=== PATIENT | male | born 1960 | race Caucasian/White ===

== ENCOUNTER 2018-09-03 19:14 | Emergency (ER) | payer BC, OTHER ==
[~2018-09-03] VITALS: Ht 175.3 cm; Wt 89.0 kg
[~2018-09-03 19:14] MED LIST: BUPR100T6 PO; EMTR1TAB5 PO; ISEN400 PO; TAMS-14 PO
[2018-09-03 19:40] VITALS: Ht 175.3 cm; Wt 89.0 kg
[2018-09-03] MEDS ORDERED: morphine 4 MG/ML VIAL IV STA (20:45)
[2018-09-03] MEDS ORDERED: IODIXANOL LOCM 100 ML BTL ONE (22:14)
[2018-09-03] MEDS ORDERED: SOD CHLORIDE 0.9% 100 ML ONE (22:14)
--- NOTE | 2018-09-03 22:51 | ERD ---
ER Documentation Chief Complaint Chief Complaint LLQ AP x1 day w/ diarrhea. no n/v/fever. hx of diverticulitis HPI 57-year-old male with a history of HIV on medications as well as diverticulitis presenting with complaints of left lower quadrant abdominal pain that is aching, nonradiating, constant, 9 out of 10, worsened with movement. He states that this feels like diverticulitis episodes he has had in the past. About 4 weeks a go, he had the same symptoms. He called his doctor and was given a 10-day course of levofloxacin and Flagyl. He finished his course of antibiotics, only missing a few doses. He improved but since yesterday has been worse. No associated fever, chills, nausea, vomiting. He does have a rash on his body that he was not aware of but he denies any itching or pain associated with it. ROS All systems reviewed and are negative except as per history of present illness. Medications Home Meds Active Scripts Levofloxacin* (Levaquin*) 750 Mg Tablet, 750 MG PO DAILY for 14 Days, TAB Prov:MELVIN INGRAM MD 09/04/18 Ondansetron (Ondansetron Odt) 4 Mg Tab.rapdis, 4 MG PO Q6H PRN for NAUSEA AND/OR VOMITING, #10 TAB Prov:MELVIN INGRAM MD 09/04/18 Metronidazole* (Flagyl*) 500 Mg Tablet, 500 MG PO TID for 14 Days, TAB Prov:MELVIN INGRAM MD 09/04/18 Reported Medications Tamsulosin Hcl* (Flomax*) 0.4 Mg Cap.er.24h, 0.4 MG PO DAILY, CAP 02/03/14 Bupropion Hcl* (Wellbutrin*) 100 Mg Tablet, 100 MG PO DAILY 07/23/12 Raltegravir Potassium* (Isentress*) 400 Mg Tablet, 800 PO BID 07/23/12 Emtricitabine/Tenofovir (Truvada Tablet) 1 Tab Tablet, 1 TAB PO DAILY 07/23/12 Allergies Allergies: Coded Allergies: No Known Allergy (Unverified , 08/16/14) PMhx/Soc History of Surgery: Yes (Paralyzed diaphragm) Anesthesia Reaction: No Hx Neurological Disorder: No Hx Respiratory Disorders: No Hx Cardiac Disorders: Yes (HTN) Hx Psychiatric Problems: Yes (Controlled Depression) Hx Miscellaneous Medical Probl: Yes (HIV+) Hx Alcohol Use: Yes (Once in a while) Hx Substance Use: Yes (Marijuana, Quit meth in 2009) Hx Tobacco Use: No Smoking Status: Never smoker Physical Exam Vitals Vital Signs Date Temp Pulse Resp B/P (MAP) Pulse Ox O2 O2 Flow FiO2 Time Delivery Rate 09/03/18 98.6 92 18 144/103 98 Room Air 20:08 (117) 09/03/18 99.3 94 18 165/88 98 19:40 (113) Physical Exam Const: No acute distress Head: Atraumatic Eyes: Normal Conjunctiva ENT: Normal External Ears, Nose and Mouth. Neck: Full range of motion. No meningismus. Resp: Clear to auscultation bilaterally Cardio: Regular rate and rhythm, no murmurs Abd: Soft, left lower quadrant tender to palpation with guarding but no rebound tenderness, non distended. Normal bowel sounds Skin: Urticarial-like erythematous rash to bilateral upper extremities and upper chest. Blanching. Nontender to palpation. No petechiae or rashes Back: No midline or flank tenderness Ext: No cyanosis, or edema Neur: Awake and alert Psych: Normal Mood and Affect Result Diagram: 09/03/18205409/03/182054 Results 24 hrs Laboratory Tests Test 09/03/18 20:55 09/04/18 00:09 White Blood Count 12.0 10^3/ul Red Blood Count 5.07 10^6/ul Hemoglobin 16.0 g/dl Hematocrit 45.9 % Mean Corpuscular Volume 90.5 fl Mean Corpuscular Hemoglobin 31.6 pg Mean Corpuscular Hemoglobin Concent 34.9 g/dl Red Cell Distribution Width 11.9 % Platelet Count 230 10^3/UL Mean Platelet Volume 10.2 fl Immature Granulocytes % 0.300 % Neutrophils % 76.0 % Lymphocytes % 13.7 % Monocytes % 8.4 % Eosinophils % 1.1 % Basophils % 0.5 % Nucleated Red Blood Cells % 0.0 /100WBC Immature Granulocytes # 0.030 10^3/ul Neutrophils # 9.1 10^3/ul Lymphocytes # 1.6 10^3/ul Monocytes # 1.0 10^3/ul Eosinophils # 0.1 10^3/ul Basophils # 0.1 10^3/ul Nucleated Red Blood Cells # 0.0 10^3/ul Urine Color STRAW Urine Clarity CLEAR Urine pH 6.0 Urine Specific Letts 1.013 Urine Ketones NEGATIVE mg/dL Urine Nitrite NEGATIVE mg/dL Urine Bilirubin NEGATIVE mg/dL Urine Urobilinogen NEGATIVE mg/dL Urine Leukocyte Esterase NEGATIVE Kirsten/ul Urine Hemoglobin NEGATIVE mg/dL Urine Glucose NEGATIVE mg/dL Urine Total Protein NEGATIVE mg/dl Sodium Level 136 mmol/L Potassium Level 3.9 mmol/L Chloride Level 101 mmol/L Carbon Dioxide Level 28 mmol/L Anion Gap 7 Blood Urea Nitrogen 17 mg/dl Creatinine 1.24 mg/dl Est Glomerular Filtrat Rate mL/min > 60 mL/min Glucose Level 117 mg/dl Calcium Level 10.2 mg/dl Total Bilirubin 1.0 mg/dl Direct Bilirubin 0.00 mg/dl Indirect Bilirubin 1.0 mg/dl Aspartate Amino Transf (AST/SGOT) 37 IU/L Alanine Aminotransferase (ALT/SGPT) 41 IU/L Alkaline Phosphatase 57 IU/L Total Protein 7.6 g/dl Albumin 4.6 g/dl Globulin 3.00 g/dl Albumin/Globulin Ratio 1.53 POC Venous Lactate 0.9 mmol/L Current Medications Medications Dose Sig/Pascual Start Time Status Last (Trade) Ordered Route PRN Stop Time Admin Dose Reason Admin Morphine 4 mg ONCE STAT 09/03/18 DC 09/03/18 Sulfate IV 20:45 21:18 (morphine) 09/03/18 20:49 IV Flush 10 ml STK-MED 09/03/18 DC 09/03/18 (NS 10 ml) ONCE .ROUTE 22:14 22:14 09/03/18 22:15 Sodium 100 ml @ ud STK-MED 09/03/18 DC 09/03/18 Chloride ONCE .ROUTE 22:14 22:14 09/03/18 22:15 Iodixanol 100 ml STK-MED 09/03/18 DC 09/03/18 (Visipaque ONCE .ROUTE 22:14 22:14 Locm) 09/03/18 22:15 Piperacillin 100 ml @ ONCE STAT 09/03/18 DC 09/03/18 Sod/ 200 mls/hr IVPB 23:26 23:54 Tazobactam 09/03/18 23:55 Sod 100 ml @ ONCE STAT 09/03/18 09/03/18 Metronidazole 100 mls/hr IVPB 23:26 23:55 09/04/18 00:25 Morphine 6 mg ONCE ONCE 09/04/18 DC 09/03/18 Sulfate IV 00:00 23:54 (morphine) 09/04/18 00:01 Procedures/MDM EMERGENT LABS AND DIAGNOSTIC STUDIES: Lab Results above were reviewed and interpreted by me. CBC: leukocytosis, likely secondary to infection. no anemia CMP: No evidence of clinically significant electrolyte abnormality, acidosis, renal failure, hypoglycemia, liver disease, or biliary obstruction\ Lactate normal, no evidence of severe sepsis or tissue hypoperfusion UA: no evidence of infection Radiology Results as interpreted by Radiology below were reviewed by Kee Ingram MD: CT abdomen and pelvis shows evidence of acute diverticulitis without evidence of perforation or abscess. Other incidental findings as noted in CT report, not related to patient's symptoms. Initial Nursing notes reviewed. Previous Medical Records requested via the Electronic Health Record. EMERGENCY DEPARTMENT COURSE / MEDICAL DECISION MAKING: Patient is presenting with left lower quadrant pain, likely acute diverticulitis. CT was done to evaluate for possible perforation or abscess as the patient recently had diverticulitis at that was treated and is having another episode so soon after. Labs showed leukocytosis but were otherwise norm al. No evidence of severe sepsis or septic shock. CT shows acute diverticulitis without complication. I spoke with the [facility] physician on-call, Dr. Reid, who feels that the patient does not require admission. He recommended 14 days of dual antibiotic therapy and follow-up with GI will be arranged by him. Patient feels comfortable with this plan. Return precautions were discussed. Importance of GI follow-up was also discussed. With regard to his rash, this may be an urticarial rash secondary to his infection but I do not suspect acute allergic reaction or other serious life-threatening etiology to rash. He was given Flagyl and Zosyn IV prior to discharge. Patient's blood pressure was elevated (>120/80) but appears stable without evidence of hypertensive emergency or urgency. The patient was counseled about the risks of hypertension and urged to pursue outpatient monitoring and therapy within a week with their primary care physician. Departure Diagnosis: Primary Impression: Diverticulitis Additional Impression: Rash and other nonspecific skin eruption Condition: Stable EKMELVIN MARTIN MD September 03, 2018 22:51
[2018-09-03] MEDS ORDERED: PIPER-TAZO 3.375 GM IV (PMX) 100 ML IVPB STA (23:26)
[2018-09-03] MEDS ORDERED: metroNIDAZOLE 500 MG/NS (PMX) 100 ML IVPB STA (23:26)
[2018-09-04] MEDS ORDERED: morphine 10 MG INJ IV ONE
[2018-09-04] MEDS ORDERED: LEVO750T25 PO (00:13)
[2018-09-04] MEDS ORDERED: METR500T PO (00:13)
[2018-09-04] MEDS ORDERED: ONDA4TAB14 PO (00:13)
[2018-09-04 01:13] VITALS: BP 130/89; PULSE 91; RESP 18
== END 2018-09-04 01:37 | disposition home or self-care (01) ==
LOC: E/R 19:14
DX: K57.32 Diverticulitis of large intestine without perforation or abscess without bleeding (principal); R21 Rash and other nonspecific skin eruption; I10 Essential (primary) hypertension
CPT/HCPCS: 36415; 74177; 80053; 81003; 83605; 85025; 96374; 96375; 96376; 99284; J2270; J2543; Q9967

== ENCOUNTER 2018-10-24 18:37 | Emergency (ER) | payer SELFPAY ==
[~2018-10-24] VITALS: Ht 175.3 cm; Wt 90.5 kg
[~2018-10-24 18:37] MED LIST changes: -EMTR1TAB5 PO; +LEVO750T25 PO; +METR500T PO; +ONDA4TAB14 PO; -TAMS-14 PO
[2018-10-24 18:40] VITALS: Ht 175.3 cm; Wt 90.5 kg
[2018-10-24] MEDS ORDERED: morphine 4 MG/ML VIAL IV STA (20:13)
[2018-10-24] MEDS ORDERED: SOD CHLORIDE 0.9% 1,000 ML IV STA (20:13)
[2018-10-24] MEDS ORDERED: CIPROFLOXACIN 400MG/D5W 200 ML IVPB STA (20:13)
[2018-10-24] MEDS ORDERED: metroNIDAZOLE 500 MG/NS (PMX) 100 ML IVPB STA (20:13)
--- NOTE | 2018-10-24 20:39 | ERD ---
ER Documentation Chief Complaint Chief Complaint PT reports LLQ pain and believes it is his diverticulitis HPI 58-year-old male with a history of recurrent diverticulitis last treated about 2 weeks ago presenting with recurrent left lower quadrant pain that started yesterday. He states this feels exactly like his diverticulitis. He came in today because his pain got worse. Pain is aching, radiating to his lower back, constant, 9 out of 10, exacerbated by movement, with no alleviating factors. He has been taking Advil for his pain without much relief. No associated dysuria, hematuria, fever, chills, constipation, nausea or vomiting. He has been having loose bowel movements. He is scheduled to see the GI doctor in 2 days. ROS All systems reviewed and are negative except as per history of present illness. Medications Home Meds Active Scripts Hydrocodone/Acetaminophen ([place] 5-325 Tablet) 1 Each Tablet, 1 TAB PO Q6H PRN for SEVERE PAIN LEVEL 7-10, #7 TAB Prov:MELVIN CHERY MD 10/24/18 Metronidazole* (Flagyl*) 500 Mg Tablet, 500 MG PO TID for 10 Days, TAB Prov:MELVIN CHERY MD 10/24/18 Levofloxacin* (Levaquin*) 750 Mg Tablet, 750 MG PO DAILY for 10 Days, TAB Prov:MELVIN CHERY MD 10/24/18 Levofloxacin* (Levaquin*) 750 Mg Tablet, 750 MG PO DAILY for 14 Days, TAB Prov:MELVIN CHERY MD 09/04/18 Ondansetron (Ondansetron Odt) 4 Mg Tab.rapdis, 4 MG PO Q6H PRN for NAUSEA AND/OR VOMITING, #10 TAB Prov:MELVIN CHERY MD 09/04/18 Metronidazole* (Flagyl*) 500 Mg Tablet, 500 MG PO TID for 14 Days, TAB Prov:MELVIN CHERY MD 09/04/18 Reported Medications Bupropion Hcl* (Wellbutrin*) 100 Mg Tablet, 100 MG PO DAILY 07/23/12 Raltegravir Potassium* (Isentress*) 400 Mg Tablet, 800 PO BID 07/23/12 Allergies Allergies: Coded Allergies: No Known Allergy (Unverified , 09/04/18) PMhx/Soc History of Surgery: Yes (Paralyzed diaphragm) Anesthesia Reaction: No Hx Neurological Disorder: No Hx Respiratory Disorders: No Hx Cardiac Disorders: Yes (HTN) Hx Psychiatric Problems: Yes (Controlled Depression) Hx Miscellaneous Medical Probl: Yes (HIV+, diverticulitis) Hx Alcohol Use: Yes (Once in a while) Hx Substance Use: Yes (Marijuana, Quit meth in 2009) Hx Tobacco Use: No Smoking Status: Never smoker FmHx Family History: No diabetes Physical Exam Vitals Vital Signs Date Temp Pulse Resp B/P (MAP) Pulse Ox O2 O2 Flow FiO2 Time Delivery Rate 10/24/18 98.9 82 20 133/96 100 Room Air 20:37 (108) 10/24/18 98.9 96 20 146/105 100 Room Air 19:54 (119) 10/24/18 98.9 108 24 152/108 100 18:40 (123) Physical Exam Const: No acute distress, nontoxic Head: Atraumatic Eyes: Normal Conjunctiva ENT: Normal External Ears, Nose and Mouth. Neck: Full range of motion. No meningismus. Resp: Clear to auscultation bilaterally Cardio: Regular rate and rhythm, no murmurs Abd: Soft, non distended. Tender to palpation in the left lower quadrant with guarding but no rebound tenderness. Otherwise all other quadrants nontender. Normal bowel sounds Skin: No petechiae or rashes Back: No midline or flank tenderness Ext: No cyanosis, or edema Neur: Awake and alert Psych: Normal Mood and Affect Result Diagram: 10/24/18199910/24/181999 Results 24 hrs Laboratory Tests Test 10/24/18 20:00 White Blood Count 9.3 10^3/ul Red Blood Count 5.19 10^6/ul Hemoglobin 16.5 g/dl Hematocrit 46.8 % Mean Corpuscular Volume 90.2 fl Mean Corpuscular Hemoglobin 31.8 pg Mean Corpuscular Hemoglobin Concent 35.3 g/dl Red Cell Distribution Width 11.9 % Platelet Count 292 10^3/UL Mean Platelet Volume 10.1 fl Immature Granulocytes % 0.300 % Neutrophils % 70.8 % Lymphocytes % 16.2 % Monocytes % 10.7 % Eosinophils % 1.6 % Basophils % 0.4 % Nucleated Red Blood Cells % 0.0 /100WBC Immature Granulocytes # 0.030 10^3/ul Neutrophils # 6.6 10^3/ul Lymphocytes # 1.5 10^3/ul Monocytes # 1.0 10^3/ul Eosinophils # 0.2 10^3/ul Basophils # 0.0 10^3/ul Nucleated Red Blood Cells # 0.0 10^3/ul Sodium Level 140 mmol/L Potassium Level 3.7 mmol/L Chloride Level 99 mmol/L Carbon Dioxide Level 31 mmol/L Anion Gap 10 Blood Urea Nitrogen 16 mg/dl Creatinine 1.21 mg/dl Est Glomerular Filtrat Rate mL/min > 60 mL/min Glucose Level 127 mg/dl Calcium Level 9.8 mg/dl Current Medications Medications Dose Sig/Pascual Start Time Status Last (Trade) Ordered Route PRN Stop Time Admin Dose Reason Admin Sodium 1,000 ml @ Q1H STAT 10/24/18 10/24/18 Chloride 1,000 mls/hr IV 20:13 10/24/18 20:31 21:12 Morphine 4 mg ONCE STAT 10/24/18 DC 10/24/18 Sulfate IV 20:13 10/24/18 20:31 (morphine) 20:15 100 ml @ ONCE STAT 10/24/18 10/24/18 Metronidazole 100 mls/hr IVPB 20:13 10/24/18 20:31 21:12 200 ml @ ONCE STAT 10/24/18 Ciprofloxacin 200 mls/hr IVPB 20:13 10/24/18 / Dextrose 21:12 Procedures/MDM EMERGENT LABS AND DIAGNOSTIC STUDIES: Lab Results above were reviewed and interpreted by me. CBC: no anemia or evidence of infection BMP: No e/o clinically significant electrolyte abnormality severe acidosis, alkalosis, renal failure, diabetic ketoacidosis UA: no evidence of infection Initial Nursing notes reviewed. Previous Medical Records requested via the Electronic Health Record. EMERGENCY DEPARTMENT COURSE / MEDICAL DECISION MAKING: Patient presents with left lower quadrant pain. Vitals were notable for mild tachycardia initially upon arrival as well as mild tachypnea, likely secondary to his pain. After his pain was controlled, his vitals improved. Labs did not show any evidence of leukocytosis or other significant abnormalities. I discussed the risks and benefits of doing a CT scan with the patient. Given his history of recurrent diverticulitis, he has most likely suffering from acute diverticulitis. I have a low suspicion for perforation or abscess. Patient agrees that trying antibiotics is reasonable prior to doing a CT scan. He was encouraged to return if any of his symptoms were worsening so he may have a CT scan if that is the case. He was given a dose of IV antibiotics with a prescription for 10 days of levofloxacin and metronidazole. He has follow-up with his GI doctor in 2 days. Return precautions were discussed. Patient was discharged in stable condition. Patient's blood pressure was elevated (>120/80) but appears stable without evidence of hypertensive emergency or urgency. The patient was counseled about the risks of hypertension and urged to pursue outpatient monitoring and therapy within a week with their primary care physician. Departure Diagnosis: Primary Impression: Left lower quadrant abdominal pain Additional Impression: Diverticulitis Condition: Stable MELVIN CHERY MD Oct 24, 2018 20:39
[2018-10-24] MEDS ORDERED: HYDR-4011 PO (20:41)
[2018-10-24] MEDS ORDERED: LEVO750T25 PO (20:41)
[2018-10-24] MEDS ORDERED: METR500T PO (20:41)
[2018-10-24] MEDS ORDERED: KETOROLAC 30 MG INJ IV STA (22:45)
[2018-10-24 22:54] VITALS: BP 128/92; PULSE 71; RESP 14
== END 2018-10-24 23:23 | disposition home or self-care (01) ==
LOC: E/R 18:37
DX: K57.92 Diverticulitis of intestine, part unspecified, without perforation or abscess without bleeding (principal); I10 Essential (primary) hypertension; Z21 Asymptomatic human immunodeficiency virus [HIV] infection status
CPT/HCPCS: 36415; 80048; 85025; 96365; 96366; 96368; 96375; 99284; J0744; J1885; J2270; J7030